=== PATIENT | female | born 1955 | race Caucasian/White ===

== ENCOUNTER 2018-11-09 00:21 | Emergency (ER) | payer BC ==
[2018-11-09] MEDS ORDERED: diphenhydrAMINE 50 MG/ML VIAL ONE (00:55)
[2018-11-09] MEDS ORDERED: Haloperidol Lactate 5 MG/ML VIAL ONE (00:55)
[2018-11-09] MEDS ORDERED: Magnesium 2 GM/50 ML BAG (IN WATER) ONE (02:06)
[2018-11-09] MEDS ORDERED: methylPREDNISolone Sod Succ/PF 125 MG/2 ML VIAL ONE (02:06)
== END 2018-11-09 03:10 | disposition home or self-care (01) ==
LOC: ERS 00:21
DX: G43.909 Migraine, unspecified, not intractable, without status migrainosus (principal); E11.9 Type 2 diabetes mellitus without complications; I10 Essential (primary) hypertension; E78.5 Hyperlipidemia, unspecified; Z86.73 Personal history of transient ischemic attack (TIA), and cerebral infarction without residual deficits
CPT/HCPCS: 96365; 96375; J1200; J1630; J2930; J3475